=== PATIENT | female | born 1995 ===

== ENCOUNTER 2016-09-07 15:21 | Emergency (ER) | payer SELFPAY ==
[2016-09-07 17:24] VITALS: BP 107/73
== END 2016-09-07 17:00 | disposition left against medical advice (07) ==
LOC: ED 15:21
DX: M79.602 Pain in left arm (principal); M25.512 Pain in left shoulder; V89.2XXA Person injured in unspecified motor-vehicle accident, traffic, initial encounter; Y93.89 Activity, other specified; Y99.9 Unspecified external cause status; Y92.410 Unspecified street and highway as the place of occurrence of the external cause; Z53.21 Procedure and treatment not carried out due to patient leaving prior to being seen by health care provider